=== PATIENT | male | born 1945 | race Caucasian/White ===

== ENCOUNTER 2025-02-26 10:50 | Outpatient (AMB) | payer OTHER, SELFPAY ==
--- NOTE | 2025-02-26 11:04 | MHC.OFFVIS ---
Intake Visit Reasons: PN RLS Allergies No Known Allergies Allergy (Verified 02/26/25 11:13) Medication List - Last Reconciled 02/26/25 by Sherrie Flores CNP atorvastatin 20 mg PO DAILY betamethasone, augmented 0.05 % appl topical BID cholecalciferol (vitamin D3) (Vitamin D3) 50 mcg PO DAILY cyanocobalamin (vitamin B-12) 1,000 mcg PO DAILY hydrocortisone 2.5% appl topical DAILY pramipexole 0.5 mg PO QPM HPI Comments Details: He was doing okay. He had some numbness and tingling to feet and legs which has not worsened. Occasionally, he had some cramps in legs, but no significant pain. Symptoms controlled with pramipexole, no medication side effects. Sleep was okay. No new or increased weakness. No falls. He was exercising regularly, including walking. Previously, legs and feet have less numbness and tingling, but has not gone away. Porum legs were not as strong as they used to be. Symptoms only occur when he is horizontal in bed, wake in 2-3 hours with numbness/tingling almost every night. Gets out of bed and it goes away. Developed pain described as an electrical current in 11/2022, which initially started in toes and soles of feet during sleep, progressing up to mid-adams, and then also began in shoulders to elbows. Sensation only occurred when horizontal and was waking from pain every night. Seen at [facility]. MRI of C-spine ordered by PCP and was seen by neurosurgery who advised that no intervention was needed. Labs 11/2022 with normal CPK and sed rate. Review of Systems Const Denies chills, Denies daytime sleepiness, Reports difficulty sleeping, Denies fatigue, Denies fever(s), Denies frequent falls, Denies headache(s), Denies increased appetite, Denies poor appetite, Denies snoring, Denies weakness, Denies weight gain and Denies weight loss Eyes Denies loss of vision ENT Denies vertigo, Denies dizziness, Denies headache(s) and Denies neck pain Card Denies chest pain at rest, Denies chest pain with activity, Denies syncope, Denies leg edema, Denies palpitations, Denies dyspnea and Denies dyspnea on exertion Resp Denies cough, Denies dyspnea, Denies dyspnea on exertion and Denies snoring GI Denies abdominal pain, Denies constipation, Denies heartburn, Denies diarrhea and Denies nausea Denies urinary frequency, Denies urinary incontinence and Denies urinary urgency Musc Denies abnormal gait, Denies back pain, Denies myalgias, Denies arthralgias, Denies neck pain, Denies numbness and Denies tingling Neuro Denies abnormal gait, Denies vertigo, Denies dizziness, Denies syncope, Denies frequent falls, Denies headache(s), Denies lack of coordination, Denies loss of vision, Denies memory loss, Denies numbness, Denies Other visual disturbances, Reports restless legs, Denies seizure-like activity, Denies tingling, Denies paresthesias, Denies tremor(s) and Denies weakness Psych Denies anxiety, Denies depression, Denies auditory hallucinations, Denies memory loss and Denies visual hallucinations Endo Denies fatigue and Denies palpitations Physical Exam Const Other: General Appearance:? normal, in no acute distress. Heart:? S1, S2 normal, no murmurs. Lungs:? clear anteriorly and posteriorly. Musculoskeletal:? normal. Extremities:? no edema. Psych:? alert, oriented, cognitive function intact, cooperative with exam. Neuro Other: Abnormal Neurological Findings:?diminished reflexes in knees and ankles.? Mental Status: alert and oriented X 3. Normal attention, orientation, memory, and affect. Cranial Nerves: Pupils are equal, round, and reactive to light. External ocular muscles are intact. Visual newman are full, no ptosis. Face is symmetrical, no facial weakness or droop. Facial sensations are normal. Tongue protrudes in midline. Palate elevates symmetrically. Shoulder shrugging is normal Motor Examination: Normal muscle tone, bulk and strength. No atrophy or fasciculations. No drift of the extended upper extremities. DTR 0+. Plantars are flexor. Sensory Exam: Normal light touch, temperature, pinprick, vibration, and joint-position sensations. Rhomberg sign is absent. Coordination: No ataxia. No titubation. Gait Exam: Within normal limits. Cerebellar Signs: [id number] is okay. Extrapyramidal System: No tremor, rigidity with normal facial expressions. No bradykinesia. No bradyphrenia. Normal arm swing and posture. No propulsion or retropulsion. Speech: Normal. 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 EMG of the left L4-S1 innervated muscles is consistent with neuropathic changes. 04/27 MRI C spine mild degen disc disease with foraminal encroachment. 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 Plan . Medications: New pramipexole 0.5 mg PO QPM 90 tabs 3RF 90 days Coding Level of Care Code Est Pt Level 4 (95282) Diagnoses Peripheral polyneuropathy G62.9 Peripheral neuropathy type: polyneuropathy, unspecified Restless leg syndrome G25.81
== END 2025-02-26 11:28 | disposition home or self-care (01) ==
LOC: HO.HSM 10:51
PROVIDERS: PCP Pediatrics; Referring Provider Pediatrics; Visit Provider Registered Nurse
DX: G62.9 Polyneuropathy, unspecified (principal); G25.81 Restless legs syndrome
CPT/HCPCS: 99214